=== PATIENT | male | born 1995 | race Caucasian/White ===

== ENCOUNTER 2022-06-03 04:26 | Emergency (ER) | payer BC, OTHER ==
[~2022-06-03] VITALS: Ht 172.7 cm; Wt 74.8 kg
[2022-06-03] MEDS ORDERED: MORPHINE SULFATE INJ 4 MG/ML DISP.SYRIN ONE (04:52)
--- NOTE | 2022-06-03 04:58 | NUR ---
AT BED SIDE FOR R SHOULDER REDUCTION
[2022-06-03] MEDS ORDERED: MORPHINE SULFATE INJ 2 MG/ML DISP.SYRIN IV ONE (05:00)
--- NOTE | 2022-06-03 05:02 | NUR ---
RAD AT BED SIDE
--- NOTE | 2022-06-03 05:11 | NUR ---
Patient discharged to home in stable condition. Written and verbal after care instructions given. Patient verbalizes understanding of instruction.IV removed. Catheter intact and site benign. Pressure and 4x4 applied to site. No bleeding noted. Pt ambulatory with a steady gait.
[2022-06-03 05:12] VITALS: BP 117/68
== END 2022-06-03 05:13 | disposition home or self-care (01) ==
LOC: ER 04:29
DX: S43.004A Unspecified dislocation of right shoulder joint, initial encounter (principal); X58.XXXA Exposure to other specified factors, initial encounter; Y93.89 Activity, other specified; Y92.89 Other specified places as the place of occurrence of the external cause; Y99.8 Other external cause status
CPT/HCPCS: 99284; 23650; 96374; 73030; J2270; J7030